=== PATIENT | female | born 1930 | race American Indian/Alaskan Native ===

== ENCOUNTER 2018-10-18 11:06 | Outpatient (CLI) | payer MEDICARE ==
--- NOTE | 2018-10-18 11:51 | XRay Report ---
XRAY CHEST TWO VIEWS: 10/18/18 11:06:00 CLINICAL: Cough and history of breast cancer. COMPARISON: None FINDINGS: The lungs are normally expanded and clear. No pulmonary nodule or mass. No airspace disease or pleural effusion. Normal size heart with pacer leads in the heart. Normal pulmonary vessels. Status post left mastectomy and left axillary node dissection. Flowing anterior ossification of the thoracic spine with continuous osteophytes at multiple levels. The disc spaces are relatively well-preserved. No suspicious bone lesions. IMPRESSION: No acute cardiopulmonary process.No pneumonia and no evidence of metastatic disease. 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
== END 2018-10-18 11:07 | disposition home or self-care (01) ==
LOC: SPVIMAG 11:06
PROVIDERS: ATTEND Internal Medicine Hematology & Oncology
DX: R05 Cough (principal); M48.14 Ankylosing hyperostosis [Forestier], thoracic region; Z85.3 Personal history of malignant neoplasm of breast
CPT/HCPCS: 71046